=== PATIENT | female | born 2000 | race Caucasian/White ===

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

== ENCOUNTER 2025-06-05 09:52 | Outpatient (REF) | payer SELFPAY ==
--- NOTE | 2025-06-05 09:20 | PAPFT_PTH ---
PATIENT: ROBIN DEWEY LOC: [facility] U#:[id number] AGE/SX: 25/F ROOM: RE06/05/[address]: Lexus Liang NP : 2000 BED: DIS: 06/05/2025 SPEC #: [id number] RECD: 06/05/25 13:07 STATUS: MANJIT SWANSON #: [id number] SHOLA: 06/05/25 09:[address]: Lexus Liang NP DEPT: [facility] Cytology RECD BY: Didi Ye Tissues: 1 - CX/ENDOCX FOR PAP SMEARS Procedures: PAP THIN PREP/[facility] Screening Comments: [id number]
== END 2025-06-05 09:53 | disposition home or self-care (01) ==
LOC: LBN 09:52
PROVIDERS: PCP Nurse Practitioner Women's Health; Visit Provider Nurse Practitioner Women's Health
DX: Z12.4 Encounter for screening for malignant neoplasm of cervix (principal)
CPT/HCPCS: 88142